=== PATIENT | female | born 1965 | race Caucasian/White ===

== ENCOUNTER 2016-07-22 19:35 | Inpatient (IN) | payer OTHER ==
--- NOTE | ~2016-07-22 | CN ---
Consultation Report [facility] [address] [place]. [address] NAME: BANDAR BOUCHER : 61 STATUS : ADM IN PAT#: [id number] AGE: 51 ADM/REG DATE : 07/23/16 MR#: [id number] REPORT SERV DATE: 07/24/16 DICTATED BY: MYRNA DYER DATE: 07/23/16 REPORT STATUS : Draft TRANSCRIBED BY: JOSH DATE: 07/23/16 DATE OF CONSULTATION: REASON FOR CONSULTATION: Chest pain, elevated troponins. HISTORY: The patient is a 51-year-old white female, diabetic smoker with a previous history of coronary artery disease, stent to an OM vessel in 2003. She states over the past three or four weeks, she has battled upper respiratory viral infections. Over the past couple of days, she has had more persistent intermittent chest discomfort associated with elevated blood pressure (greater than 200) and over the past day and a half, nausea, headache, and back discomfort. She also was experiencing some intermittent diaphoresis because of the constellation of these symptoms and persistent blood pressure elevation. She presented to the emergency room for further therapy and evaluation. Her initial troponin level was 0.02, but repeat level 7-1/2 hours later was 0.09. She states her home blood sugars usually run between 150 and 300, although recently they have been up as high as 600. She smokes a pack per day, but over the past 10 days, has cut back significantly due to her upper respiratory symptoms. She also states she has recently run out of medications and has not been taking her usual statin and/or RONA inhibitor. CURRENT HOME MEDICATIONS: These are largely unknown. She believes she is on some form of statin therapy as well as antihypertensive medications, but is unable to provide a list of medicines. In addition, she takes oxycodone 15 mg daily p.r.n., tizanidine 4 mg q.h.s., and Levaquin which she has three more doses remaining. ALLERGIES OR INTOLERANCES: She has no known allergies or intolerances. SOCIAL HISTORY: As mentioned, , smoker. FAMILY HISTORY: Reportedly positive for diabetes and coronary artery disease. PAST MEDICAL HISTORY/REVIEW OF SYSTEMS: She has had several nuclear stress tests, the last in 2013 reported to be normal. Her last echocardiogram at that time also showed a normal LV function with no valvular heart disease. She has a history of hypertension, obstructive sleep apnea, and is on CPAP with which she is compliant, hypothyroidism. She has had multiple spine surgeries and has chronic pain syndrome. She carries a diagnosis of likely COPD, although I do not have data in hand to support or contradict that diagnosis. She is tobacco dependent and is obese with a BMI of greater than 40. PHYSICAL EXAMINATION: GENERAL: This is a 51-year-old white female, presently comfortable. VITAL SIGNS: Blood pressure 127/65, pulse 107 and regular, respirations 18. SKIN: No xanthelasmas. HEENT: She is normocephalic. There is no pallor. Sclerae white. JVD is not elevated. No carotid bruits. CHEST: There are no crackles. Consultation Report [place] [id number] [facility] [place]. [address] NAME: BANDAR BOUCHER : 61 STATUS : ADM IN [facility]#: [id number] AGE: 51 ADM/REG DATE : 07/23/16 MR#: [id number] REPORT SERV DATE: 07/24/16 DICTATED BY: MYRNA DYER DATE: 07/23/16 REPORT STATUS : Draft TRANSCRIBED BY: JOSH DATE: 07/23/16 CARDIAC: S1 normal. S2 is physiologic. There is an S4. There is no S3. ABDOMEN: Without tenderness. EXTREMITIES: Without edema. Pulses are +2 and symmetric. NEUROLOGIC: No focal deficits. LABORATORY DATA: Sodium is low at 130; BUN 18; creatinine 1.1; potassium 3.9; glucose on admission 645 with initial troponin less than 0.02, now at 0.09; magnesium was 2.1. White count 9.4, hemoglobin 15.6, platelets 323,000. ECG shows sinus rhythm with lateral inverted T-waves. This is a departure from her baseline ECG, which showed some ST-T wave flattening in the lateral leads and slight inversion in lead 1 and V6. IMPRESSION: A 51-year-old white female, high risk for coronary artery disease, previous stent placed on 06/13/2003 with an ostial D1 lesion (stent type Express 2.5 x 12 mm). The patient underwent a repeat catheterization on 07/01/[address] Escobar. At that time, the stent was noted to be widely patent. DISPOSITION: Her diabetes and hypertension are being addressed by primary care. We will plan coronary angiography and try to utilize a radial approach. Further recommendations pending those results. KARLI/JOSH Myrna Dyer M.D. / [id number] CC: Oliver Edmond M.D. [facility]
--- NOTE | ~2016-07-22 | HP ---
History And Physical [facility] [address] [place]. [address] NAME: BANDAR BOUCHER : 61 STATUS : ADM IN [facility]#: [id number] AGE: 51 ADM/REG DATE : 07/23/16 MR#: [id number] REPORT SERV DATE: 07/23/16 DICTATED BY: FRANCISCO PAULSON DATE: 07/23/16 REPORT STATUS : Draft TRANSCRIBED BY: MODLennox DATE: 07/23/16 DATE OF ADMISSION: 07/23/2016 CHIEF COMPLAINT: Chest pain. HISTORY OF PRESENT ILLNESS: A 51-year-old white female, who was transferred from home to [facility] Emergency Room with the above complaint. According to the patient, for about the last month, she has been dealing with an upper respiratory infection that has required three rounds of antibiotics. She has three more days left of Levaquin at this time. She says she has been having minimal cough, just more upper respiratory symptoms, when she started yesterday with chest pain, described it as being in her left upper chest, called it an "uncomfortable feeling," was moderate in severity, was constant and is still going on at this time, although not as severe, radiated to her left arm, has some associated shortness of breath and nausea and vomiting with it. Nothing made it better or worse. As stated above, she had on presentation at the emergency room and it continues now just in a lesser severity. Of note is that the patient did run out of her lisinopril and had been noncompliant with taking it and did have elevated blood pressures. The patient does have a history of coronary artery disease with stents in the past by [facility]. She states she has been doing fine with that. Otherwise, no fever or chills. The patient is a smoker, but stopped recently with this recent illness. No trauma, no rash, and no edema. ALLERGIES: NO KNOWN DRUG ALLERGIES. MEDICATIONS: Please see MAR. PAST MEDICAL HISTORY: Hypertension, poor control; IDDM; hypercholesterolemia; obstructive sleep apnea with nighttime CPAP; coronary artery disease with previous stent; depression; chronic pain syndrome, managed by pain management. PAST SURGICAL HISTORY: Multiple back surgeries with fusion of L4-L5 and seen by pain management, cholecystectomy, partial abdominal hysterectomy, left heel spur removal. SOCIAL HISTORY: The patient is , lives in [place] and see Dr. Edmond at [facility], smoker, nondrinker, disabled from her back injuries. FAMILY HISTORY: Hypertension. REVIEW OF SYSTEMS: Overall unremarkable except for above. PHYSICAL EXAMINATION: VITAL SIGNS: Blood pressure, on Cardene drip, 156/78; pulse 100 and elevates when she is ambulating; respirations 20; temperature, afebrile; weight 89 kg. GENERAL: White female with continued " discomfort" over her sternal area. History And Physical [address] [address] NAME: BANDAR BOUCHER : 61 STATUS : ADM IN PAT#: [id number] AGE: 51 ADM/REG DATE : 07/23/16 MR#: [id number] REPORT SERV DATE: 07/23/16 DICTATED BY: FRANCISCO PAULSON DATE: 07/23/16 REPORT STATUS : Draft TRANSCRIBED BY: JOSH DATE: 07/23/16 HEAD: Normocephalic, atraumatic. EYES: Anicteric. ENT: Fair dentition and moist mucosa. NECK: No JVD. No thyromegaly. LUNGS: CTA without RRW. HEART: Regular rate and rhythm without murmurs, gallops, or rubs. ABDOMEN: Obese, positive bowel sounds, old surgical scars but otherwise negative exam. EXTREMITIES: No muscular wasting. LYMPH: No edema. NEURO: No acute focal deficits. LABORATORY DATA: CBC shows WBC 9, H and H are 15.6 and 42.6, PLT 323. Chemistry shows Na 130, K 3.9, CO 95, CO2 of 24, BUN 18, creatinine 1.1. GFR 57. Glucose upon presentation was 645, down in the 300 now. Magnesium is normal. Original troponins were negative, but last one was elevated at 0.09 (H). Chest x-ray, portable chest x-ray done in the emergency room shows no acute changes with normal x-ray overall. CONSULTATION: We will consult Cardiology for evaluation. IMPRESSION: 1. Chest pain, questionable etiology. 2. History of coronary artery disease with stents. 3. Insulin-dependent diabetes mellitus poor control. 4. Hypertension, urgency with noncompliance. 5. Elevated troponin, questionable cause. 6. Hyponatremia, probably secondary to elevated glucose. 7. Chronic kidney disease, stage III at this time. 8. History of obstructive sleep apnea with CPAP. 9. Hypercholesterolemia. 10.Chronic pain syndrome. PLAN: 1. We will continue Cardene drip and add p.o. medications and wean as needed. We will discontinue nitroglycerin as I wonder if her chest pain is truly cardiac. We will just treat with p.r.n. sublingual nitroglycerin if the patient continues to have chest pain. We will consult Cardiology and get the evaluation. 2. Watch for any signs and symptoms of arrhythmia or change in chest pain as the patient is at risk for acute coronary syndrome. 3. We will aggressively treat her blood sugars as she is at risk for DKA. 4. Control blood pressures as she is at risk for CVA. 5. Follow up on troponin and get cardiology's input. The patient is at risk for cardiac arrhythmia. 6. Repeat sodium as I suspect it will correct with her blood sugars correcting. Is probably pseudo secondary to elevated blood sugars, but will watch for any HEALTH SCIENCES MANAGER symptoms. History And Physical [address] [address] NAME: BANDAR BOUCHER : 61 STATUS : ADM IN PAT#: [id number] AGE: 51 ADM/REG DATE : 07/23/16 MR#: [id number] REPORT SERV DATE: 07/23/16 DICTATED BY: FRANCISCO PAULSON DATE: 07/23/16 REPORT STATUS : Draft TRANSCRIBED BY: JOSH DATE: 07/23/16 7. Follow renal function as she is at risk for acute kidney injury. 8. Counseled the patient on getting her CPAP machine for tonight as she is at risk for hypoxia. 9. Order her pain medicines as she takes them for chronic pain syndrome. 10.DVT precautions. RH/MODL Francisco Paulson M.D. / [id number] CC: Oliver Edmond M.D.
[2016-07-22 20:24] LABS: BASOPHILS 0.4 %; BASOPHILS ABSOLUTE 0.04 10/3/uL (0.0-0.16); EOSINOPHILS ABSOLUTE 0.19 10/3/uL (0.0-0.53); HEMATOCRIT 42.6 % (36.0-48.0); HEMOGLOBIN 15.6 g/dL (12.0-16.0); IMMATURE GRANULOCYTES 0.4 %; IMMATURE GRANULOCYTES ABSOLUTE 0.04 10/3/uL (0.0-0.11); LYMPHOCYTES 26.9 %; LYMPHOCYTES ABSOLUTE 2.53 10/3/uL (0.67-4.30); MEAN CORPUS HGB CONC 36.6 g/dL (32.0-36.0); MEAN CORPUSCULAR HEMOGLOB 30.8 pg (26.0-34.0); MEAN CORPUSCULAR VOLUME 84.2 fL (80-100); MEAN PLATELET VOLUME 10.6 fL (9.2-13.0); MONOCYTES 5.1 %; MONOCYTES ABSOLUTE 0.48 10/3/uL (0.21-1.20); NEUTROPHILS 65.2 %; NEUTROPHILS ABSOLUTE 6.12 10/3/uL (2.02-8.40); PLATELET COUNT 323 10/3/uL (150-400); RBC DISTRIBUTION WIDTH 12.6 % (12.0-16.0); RED CELL COUNT 5.06 10/6/uL (4.0-5.6); WHITE BLOOD CELLS 9.4 10/3/uL (4.5-10.5)
[2016-07-22 20:28] LABS: ER CBC TAT 0 Hrs 07 MinsNP; MANUAL DIFF NO %
[2016-07-22 20:31] LABS: INTERNATIONAL NORMAL RATI 0.9 UNITS (-); PARTIAL THROMBO TIME 27.5 SEC (22.5-37.2); PROTIME (NOT ORD) 12.5 SEC (12.0-14.5)
[2016-07-22 20:41] LABS: BUN (BLOOD UREA NITROGEN) 18 MG/DL (6-23); CALCIUM, SERUM 8.4 MG/DL (8.5-10.4); CHEST PAIN PROFILE TAT 0 Hrs 24 Mins; CHLORIDE, SERUM 95 MMOL/L (96-112); CO2 (CARBON DIOXIDE) 24 MMOL/L (24-34); CREATININE 1.11 MG/DL (0.55-1.02); GFR AFRICAN AMERICAN 66 ML/MIN (>=60); GFR NON AFRICAN AMERICAN 57 ML/MIN (>=60); POTASSIUM, SERUM 3.9 MMOL/L (3.5-5.3); SODIUM, SERUM 130 MMOL/L (135-148); TROPONIN I <0.02 NG/ML (<0.05)
[2016-07-22 20:42] LABS: GLUCOSE, SERUM 645 MG/DL (60-99)
[2016-07-23] MEDS ORDERED: ESTRACE1 MG PO (01:45)
[2016-07-23] MEDS ORDERED: GLUCOPHAGE1000 MG PO (01:45)
[2016-07-23] MEDS ORDERED: PRIN20 PO (01:45)
[2016-07-23] MEDS ORDERED: MAX25 PO (01:45)
[2016-07-23] MEDS ORDERED: AMARYL4 PO (01:45)
[2016-07-23] MEDS ORDERED: ZANAFLEX 4 MG TA4 MG PO (01:47)
[2016-07-23] MEDS ORDERED: ROXICODONE15 MG PO (01:48)
[2016-07-23] MEDS ORDERED: MSCONTIN PO (01:53)
[2016-07-23] MEDS ORDERED: LEVAQUIN PO (01:56)
[2016-07-23] MEDS ORDERED: *UNABLE3 (01:57)
[2016-07-24 04:37] LABS: BASOPHILS 0.4 %; BASOPHILS ABSOLUTE 0.04 10/3/uL (0.0-0.16); EOSINOPHILS 1.8 %; EOSINOPHILS ABSOLUTE 0.19 10/3/uL (0.0-0.53); HEMATOCRIT 43.6 % (36.0-48.0); HEMOGLOBIN 15.6 g/dL (12.0-16.0); IMMATURE GRANULOCYTES 0.7 %; IMMATURE GRANULOCYTES ABSOLUTE 0.08 10/3/uL (0.0-0.11); LYMPHOCYTES ABSOLUTE 2.91 10/3/uL (0.67-4.30); MEAN CORPUS HGB CONC 35.8 g/dL (32.0-36.0); MEAN CORPUSCULAR HEMOGLOB 30.4 pg (26.0-34.0); MEAN PLATELET VOLUME 9.9 fL (9.2-13.0); MONOCYTES 6.2 %; MONOCYTES ABSOLUTE 0.67 10/3/uL (0.21-1.20); NEUTROPHILS 63.9 %; NEUTROPHILS ABSOLUTE 6.87 10/3/uL (2.02-8.40); PLATELET COUNT 311 10/3/uL (150-400); RBC DISTRIBUTION WIDTH 12.7 % (12.0-16.0); RED CELL COUNT 5.13 10/6/uL (4.0-5.6); WHITE BLOOD CELLS 10.8 10/3/uL (4.5-10.5)
[2016-07-24 04:47] LABS: MANUAL DIFF NO %
[2016-07-24 05:00] LABS: BUN (BLOOD UREA NITROGEN) 17 MG/DL (6-23); CALCIUM, SERUM 8.6 MG/DL (8.5-10.4); CHLORIDE, SERUM 102 MMOL/L (96-112); CHOL/HDL RATIO(NOT ORDER) 6.6 (0-5); CHOLESTEROL 238 MG/DL (< 200); CO2 (CARBON DIOXIDE) 23 MMOL/L (24-34); CREATININE 0.73 MG/DL (0.55-1.02); GFR AFRICAN AMERICAN 109 ML/MIN (>=60); GFR NON AFRICAN AMERICAN 94 ML/MIN (>=60); GLUCOSE, SERUM 326 MG/DL (60-99); HDL CHOLESTEROL 36 MG/DL (> 49); LDL CHOLESTEROL 125 MG/DL (< 130); NON-HDL CHOLESTEROL 202 MG/DL (< 160); POTASSIUM, SERUM 3.7 MMOL/L (3.5-5.3); SODIUM, SERUM 136 MMOL/L (135-148); TRIGLYCERIDE 389 MG/DL (< 150)
[2016-07-24 05:01] LABS: TROPONIN I 0.09 NG/ML (<0.05)
[2016-07-24 18:25] LABS: CPK 49 U/L (0-200)
[2016-07-24 18:26] LABS: CK-MB < 0.5 NG/ML
[2016-07-25 04:40] LABS: HEMATOCRIT 43.8 % (36.0-48.0); HEMOGLOBIN 15.4 g/dL (12.0-16.0)
[2016-07-25 04:59] LABS: BUN (BLOOD UREA NITROGEN) 17 MG/DL (6-23); CALCIUM, SERUM 8.8 MG/DL (8.5-10.4); CHLORIDE, SERUM 104 MMOL/L (96-112); CHOLESTEROL 222 MG/DL (< 200); CO2 (CARBON DIOXIDE) 22 MMOL/L (24-34); CPK 34 U/L (0-200); CREATININE 0.88 MG/DL (0.55-1.02); GFR AFRICAN AMERICAN 87 ML/MIN (>=60); GFR NON AFRICAN AMERICAN 75 ML/MIN (>=60); GLUCOSE, SERUM 276 MG/DL (60-99); HDL CHOLESTEROL 37 MG/DL (> 49); LDL CHOLESTEROL 130 MG/DL (< 130); NON-HDL CHOLESTEROL 185 MG/DL (< 160); POTASSIUM, SERUM 3.8 MMOL/L (3.5-5.3); SGPT(ALT) 44 U/L (5-65); SODIUM, SERUM 138 MMOL/L (135-148); TRIGLYCERIDE 279 MG/DL (< 150)
[2016-07-25 05:05] LABS: CK-MB 0.9 NG/ML
[2016-07-25] MEDS ORDERED: NORV5 PO (12:31)
[2016-07-25] MEDS ORDERED: NOVOLOG SC (12:34)
[2016-07-25] MEDS ORDERED: LEVEMIR SC (12:34)
[2016-07-25] MEDS ORDERED: BRILINTA90 MG PO (12:37)
[2016-07-25] MEDS ORDERED: LIPITOR40 PO (12:38)
[2016-07-25] MEDS ORDERED: COREG25 PO (12:38)
[2016-07-25] MEDS ORDERED: ZESTRIL20 MG PO (12:39)
[2016-07-25] MEDS ORDERED: NTG150 SL (12:39)
== END 2016-07-25 15:55 | disposition home or self-care (01) | DRG 247 ==
LOC: ER 19:35 → ER/OF 07-23 02:19 → IMCU 07-23 09:53 → SSU1 07-24 16:51
PROVIDERS: Emergency Medicine; Family Medicine; Internal Medicine Cardiovascular Disease
PROC: 027034Z Dilation of Coronary Artery, One Artery with Drug-eluting Intraluminal Device, Percutaneous Approach (ICD-10-PCS; principal; 2016-07-23)
PROC: 4A023N7 Measurement of Cardiac Sampling and Pressure, Left Heart, Percutaneous Approach (ICD-10-PCS; 2016-07-23)
PROC: B2151ZZ Fluoroscopy of Left Heart using Low Osmolar Contrast (ICD-10-PCS; 2016-07-23)
PROC: B2111ZZ Fluoroscopy of Multiple Coronary Arteries using Low Osmolar Contrast (ICD-10-PCS; 2016-07-23)
DX: I21.4 Non-ST elevation (NSTEMI) myocardial infarction (principal); E11.65 Type 2 diabetes mellitus with hyperglycemia; N18.3 Chronic kidney disease, stage 3 (moderate); Z99.81 Dependence on supplemental oxygen; E87.1 Hypo-osmolality and hyponatremia; Z68.41 Body mass index [BMI] 40.0-44.9, adult; I25.10 Atherosclerotic heart disease of native coronary artery without angina pectoris; I12.9 Hypertensive chronic kidney disease with stage 1 through stage 4 chronic kidney disease, or unspecified chronic kidney disease; E78.00 Pure hypercholesterolemia, unspecified; F17.210 Nicotine dependence, cigarettes, uncomplicated; G47.33 Obstructive sleep apnea (adult) (pediatric); E03.9 Hypothyroidism, unspecified; G89.4 Chronic pain syndrome; E66.01 Morbid (severe) obesity due to excess calories; J44.9 Chronic obstructive pulmonary disease, unspecified; Z95.5 Presence of coronary angioplasty implant and graft; Z83.3 Family history of diabetes mellitus; Z82.49 Family history of ischemic heart disease and other diseases of the circulatory system
CPT/HCPCS: 71010; 80048; 80061; 82272; 82550; 82553; 82962; 83036; 83735; 84460; 84484; 85014; 85018; 85025; 85347; 85610; 85730; 87641; 90686; 93005; 93458; 96374; 99152; 99153; 99291; A9270-GY; C1725; C1769; C1874; C1887; C1894; C9600; G0008; J0360; J2250; J2405; J3010; Q9967

== ENCOUNTER 2016-08-28 17:10 | Observation (INO) | payer OTHER ==
--- NOTE | ~2016-08-28 | HP ---
History And Physical [place] [id number] [facility] [place]. [address] NAME: BANDAR BOUCHER : 61 STATUS : ADM Rodrigo PAT#: [id number] AGE: 51 ADM/REG DATE : 08/28/16 MR#: [id number] REPORT SERV DATE: 08/29/16 DICTATED BY: DEBORA TITUS DATE: 08/29/16 REPORT STATUS : Draft TRANSCRIBED BY: MODL DATE: 08/29/16 DATE OF ADMISSION: 08/28/2016 SURGICAL SCHEDULER: Yamel Parnell MD CHIEF COMPLAINT: Increased chest pain while in cardiac rehab. HISTORY OF PRESENT ILLNESS: A very pleasant 51-year-old white female with known history of CAD, status post ESTHELA to diagonal, 07/24/2016, with identified 75% proximal RCA lesion at that time, which was not intervened on. The patient states that she was in cardiac rehab yesterday on 08/28 and while doing repetitive steps in front of a staff member, she reported feeling tired and winded all day. Her blood pressure was taken and she states that it was elevated. She then experienced increasing chest pain. She reports a baseline chest discomfort of 2 to 3/10, this increased to a 7/10. She was breathless over the last two days. The chest pain also radiated into her left arm. She reports shortness of breath, some minimal nausea, dizziness, and belching. Denies diaphoresis. Nitroglycerin was provided with relief to her baseline chest discomfort of 2/10. She reports requiring two nitroglycerin on 08/20 and one nitroglycerin for chest pain for a subsequent episode prior to yesterday's event. The patient reports a personal history of one heart attack 07/2016. Denies history of stroke, DVT, or pulmonary embolus. The patient denies any recent fever or chills, no palpitations, no syncopal episodes. Denies PND or orthopnea. PAST MEDICAL HISTORY: 1. CAD. a. Reports SC in 07/2016. b. Status post ESTHELA to first diagonal with 75% proximal RCA lesion, not intervened on. 2. Hypertension. 3. Dyslipidemia. 4. AODM. 5. Sleep apnea, compliant with CPAP. 6. Former tobacco abuse. SURGICAL HISTORY: 1. Six lumbar surgeries. 2. Hysterectomy. 3. Cholecystectomy. 4. Bone spur removed from left heel. SOCIAL HISTORY: She is with two children. Disabled secondary to her back. Currently working out at cardiac rehab three times weekly with chest pain yesterday. Quit smoking in 06/2016, prior to that was one pack per day for 30 plus years. Denies alcohol or illicits. History And Physical [address] [place]. [address] NAME: BANDAR BOUCHER : 61 STATUS : ADM Rodrigo PAT#: [id number] AGE: 51 ADM/REG DATE : 08/28/16 MR#: [id number] REPORT SERV DATE: 08/29/16 DICTATED BY: DEBORA TITUS DATE: 08/29/16 REPORT STATUS : Draft TRANSCRIBED BY: JOSH DATE: 08/29/16 FAMILY HISTORY: Father at 56 of suicide. Son at 22 of a brain aneurysm. REVIEW OF SYSTEMS: A 14-point review of systems performed, significant for HPI including home blood sugars of 80-400 with most recent hemoglobin A1c of 13, followed by PCP. Otherwise, complete review of systems obtained and negative. ALLERGIES: NO KNOWN DRUG ALLERGIES. HOME MEDICINES: Aspirin 81 mg daily, atorvastatin 40 mg nightly, Coreg 25 mg twice daily, Amaryl 4 mg twice daily, Levemir 40 units at bedtime, Imdur 30 mg daily, lisinopril 20 mg daily, Glucophage 1000 mg twice daily, nitroglycerin p.r.n., and Brilinta 90 mg twice daily. PHYSICAL EXAMINATION: VITAL SIGNS: Blood pressure 125/59; pulse 53; respirations 13; temperature 98.0; O2 97% on room air, 99 on CPAP. Height 5 feet 4 inches. Weight 204 pounds. BMI 35. GENERAL: Cooperative, in no apparent distress. HEENT: Pupils 2 mm, sclera nonicteric. Nares patent. Moist mucous membranes. No xanthelasma. NECK: Trachea midline, no thyromegaly. No JVD. No bruits. LYMPH: No cervical lymphadenopathy. No supraclavicular lymphadenopathy. RESPIRATORY: Unlabored respirations. Breath sounds clear bilaterally to posterior auscultation. No wheezes or rhonchi. CARDIOVASCULAR: Regular rate. No murmur, rub or gallop appreciated. Extremities without edema. Right radial site clean, dry, and intact. 2+ pulses. ABDOMEN: Soft, nontender, nondistended, normal bowel sounds auscultated throughout. No organomegaly. SKIN: Warm, dry extremities. No pallor, or cyanosis. PSYCHIATRIC: Appropriate affect. Alert, oriented x3. LABORATORY DATA: Troponin less than 0.02 x3. Potassium 3.6, BUN 17, creatinine 0.87, glucose 100, magnesium 1.9. WBC 10.3, hemoglobin 14.1, hematocrit 39.4, platelet count 338,000. EKG sinus bradycardia. Echo, 08/23/2016, EF 65%. PCI 07/24/2016 (Negus: ESTHELA to first diagonal with 75% proximal RCA, not intervened on). EF of 55%. ASSESSMENT AND PLAN: 1. Substernal chest pain with exertion. The patient has been observed in the CPOU. Three sets of cardiac markers were negative. The patient has been held n.p.o. Case and update provided to patient's physician Dr. Parnell, who recommends proceeding with MPI today. The patient will be sent for stress test, home if negative. Followup with PCP and Cardiology as appropriate. If anything suggestive of ischemia, Cardiology referral will be initiated. 2. Coronary artery disease. Continue home medications. The patient reports two days of breathlessness. May consider switching Brilinta if breathlessness persists and no History And Physical [address] [address] NAME: BANDAR BOUCHER : 61 STATUS : ADM Rodrigo PAT#: [id number] AGE: 51 ADM/REG DATE : 08/28/16 MR#: [id number] REPORT SERV DATE: 08/29/16 DICTATED BY: DEBORA TITUS DATE: 08/29/16 REPORT STATUS : Draft TRANSCRIBED BY: MODL DATE: 08/29/16 other cause of breathlessness identified. 3. Hypertension. Monitor blood pressure. Continue home medications. 4. Dyslipidemia. Continue statin. 5. Adult-onset diabetes mellitus. Hold metformin, level 1 sliding scale correction. 6. Obesity. Continue exercise in cardiac rehab. 7. Smoking cessation. Congratulated on quitting smoking. GEOFF/JOSH Debora Titus, MSN, ENGLISH LANGUAGE LEARNER TEACHER- / [id number] CC: JONATHAN Luna M.D. Ondrej J Lisy, M.D.
[2016-08-28 14:42] LABS: BASOPHILS 0.4 %; BASOPHILS ABSOLUTE 0.04 10/3/uL (0.0-0.16); EOSINOPHILS ABSOLUTE 0.21 10/3/uL (0.0-0.53); HEMOGLOBIN 14.1 g/dL (12.0-16.0); IMMATURE GRANULOCYTES 0.3 %; IMMATURE GRANULOCYTES ABSOLUTE 0.03 10/3/uL (0.0-0.11); LYMPHOCYTES 25.7 %; LYMPHOCYTES ABSOLUTE 2.65 10/3/uL (0.67-4.30); MEAN CORPUS HGB CONC 35.8 g/dL (32.0-36.0); MEAN CORPUSCULAR HEMOGLOB 30.4 pg (26.0-34.0); MEAN CORPUSCULAR VOLUME 84.9 fL (80-100); MEAN PLATELET VOLUME 9.7 fL (9.2-13.0); MONOCYTES 5.3 %; MONOCYTES ABSOLUTE 0.55 10/3/uL (0.21-1.20); NEUTROPHILS 66.3 %; NEUTROPHILS ABSOLUTE 6.83 10/3/uL (2.02-8.40); PLATELET COUNT 338 10/3/uL (150-400); RED CELL COUNT 4.64 10/6/uL (4.0-5.6); WHITE BLOOD CELLS 10.3 10/3/uL (4.5-10.5)
[2016-08-28 14:43] LABS: HEMATOCRIT 39.4 % (36.0-48.0); MANUAL DIFF NO %
[2016-08-28 14:49] LABS: PARTIAL THROMBO TIME 26.9 SEC (22.5-37.2); PROTIME (NOT ORD) 13.2 SEC (12.0-14.5)
[2016-08-28 14:57] LABS: BUN (BLOOD UREA NITROGEN) 17 MG/DL (6-23); CHEST PAIN PROFILE TAT 0 Hrs 21 Mins; CHLORIDE, SERUM 105 MMOL/L (96-112); CO2 (CARBON DIOXIDE) 26 MMOL/L (24-34); CREATININE 0.87 MG/DL (0.55-1.02); GFR AFRICAN AMERICAN 88 ML/MIN (>=60); GFR NON AFRICAN AMERICAN 76 ML/MIN (>=60); POTASSIUM, SERUM 3.6 MMOL/L (3.5-5.3); SODIUM, SERUM 141 MMOL/L (135-148); TROPONIN I <0.02 NG/ML (<0.05)
[2016-08-28 15:01] LABS: GLUCOSE, SERUM 100 MG/DL (60-99)
[~2016-08-28 17:10] MED LIST: *UNABLE3; AMARYL4 PO; BRILINTA90 MG PO; COREG25 PO; ESTRACE1 MG PO; GLUCOPHAGE1000 MG PO; LEVAQUIN PO; LEVEMIR SC; LIPITOR40 PO; MAX25 PO; MSCONTIN PO; NORV5 PO; NOVOLOG SC; NTG150 SL; PRIN20 PO; ROXICODONE15 MG PO; ZANAFLEX 4 MG TA4 MG PO; ZESTRIL20 MG PO
[2016-08-28] MEDS ORDERED: GLUCOPHAGE1000 MG PO (17:41)
[2016-08-28] MEDS ORDERED: HALF81 PO (17:43)
[2016-08-28] MEDS ORDERED: AMARYL4 PO (17:45)
[2016-08-28] MEDS ORDERED: IMDUR30 PO (17:46)
== END 2016-08-29 16:07 | disposition home or self-care (01) ==
LOC: ER 17:10 → CDU1 18:23 → CDU2 22:20
PROVIDERS: Emergency Medicine
DX: R07.2 Precordial pain (principal); Z48.812 Encounter for surgical aftercare following surgery on the circulatory system; I25.10 Atherosclerotic heart disease of native coronary artery without angina pectoris; I10 Essential (primary) hypertension; E78.5 Hyperlipidemia, unspecified; E11.9 Type 2 diabetes mellitus without complications; E66.9 Obesity, unspecified; Z68.35 Body mass index [BMI] 35.0-35.9, adult; Z87.891 Personal history of nicotine dependence; Z90.49 Acquired absence of other specified parts of digestive tract; Z90.710 Acquired absence of both cervix and uterus; Z98.890 Other specified postprocedural states; Z79.82 Long term (current) use of aspirin; Z79.4 Long term (current) use of insulin; Z79.899 Other long term (current) drug therapy; Z95.5 Presence of coronary angioplasty implant and graft
CPT/HCPCS: 71020; 78452; 80048; 82962; 83735; 84484; 85025; 85610; 85730; 93005; 93017; 93798; 99285; A9270-GY; A9502; G0378